=== PATIENT | male | born 1975 | race Caucasian/White ===

== ENCOUNTER 2019-07-14 14:44 | Emergency (ER) | payer MEDICAID, OTHER ==
[~2019-07-14] VITALS: Ht 177.8 cm; Wt 73.6 kg
[2019-07-14] MEDS ORDERED: LORazepam 2 mg/ml vial IM ONE (15:25)
[2019-07-14 15:42] LABS: BASOPHILS # (AUTO) 0.1 X10'3 (0-0.2); BASOPHILS % (AUTO) 0.7 % (0-1); EOSINOPHILS # (AUTO) 0.1 X10'3 (0-0.9); EOSINOPHILS % (AUTO) 1.1 % (0-6); HEMATOCRIT 40.5 % (42.0-52.0); HEMOGLOBIN 13.9 g/dl (14.0-17.9); LYMPHOCYTES # (AUTO) 2.5 X10'3 (1.1-4.8); LYMPHOCYTES % (AUTO) 25.9 % (21-51); MEAN CORPUSCULAR HEMOGLOBIN 31.5 PG (27.0-31.0); MEAN CORPUSCULAR HGB CONC 34.2 g/dL (33.0-36.5); MEAN CORPUSCULAR VOLUME 91.9 FL (78-98); MEAN PLATELET VOLUME 7.7 FL (7.4-10.4); MONOCYTES # (AUTO) 1.2 X10'3 (0-0.9); MONOCYTES % (AUTO) 12.4 % (2-12); NEUTROPHILS # (AUTO) 5.8 X10'3 (1.8-7.7); NEUTROPHILS % (AUTO) 59.9 % (42-75); PLATELET COUNT 189 X10'3 (140-440); RED BLOOD COUNT 4.41 X10'6 (4.70-6.10); RED CELL DISTRIBUTION WIDTH 13.9 % (11.5-14.5); WHITE BLOOD COUNT 9.6 X10'3 (4.5-11.0)
[2019-07-14 15:53] LABS: ALANINE AMINOTRANSFERASE 47 U/L (12-78); ALBUMIN 4.2 G/DL (3.4-5.0); ALBUMIN/GLOBULIN RATIO 1.1 (1.1-1.5); ALKALINE PHOSPHATASE 74 IU/L (46-116); ANION GAP 10 (8-16); ASPARTATE AMINO TRANSFERASE 52 U/L (10-37); BILIRUBIN,TOTAL 0.5 MG/DL (0.1-1.0); BLOOD UREA NITROGEN 10 MG/DL (7-18); BUN/CREATININE RATIO 11.5 (5.4-32.0); CALCIUM 9.4 MG/DL (8.5-10.1); CHLORIDE 104 MMOL/L (99-107); CREATININE 0.87 MG/DL (0.60-1.10); GLUCOSE 88 MG/DL (70-104); POTASSIUM 3.6 MMOL/L (3.5-5.1); SODIUM 141 MMOL/L (135-145); TOTAL CARBON DIOXIDE 27.4 MMOL/L (24-32); TOTAL PROTEIN 8.2 G/DL (6.4-8.2); eGFR > 90 ML/MIN
[2019-07-14 15:55] LABS: ETHANOL < 0.010 GM/DL (0.0-0.010)
[2019-07-14] MEDS ORDERED: ibuprofen tablet 400 MG TABLET PO ONE (17:00)
--- NOTE | 2019-07-14 17:00 | NUR ---
PT STANDING IN THE BAY REQUESTING PAIN MEDICATION
[2019-07-14] MEDS ORDERED: haloperidol lactate 5mg/ml inj IM ONE (17:05)
--- NOTE | 2019-07-14 18:01 | NUR ---
PT IS SNORING, NO AGITATION APPARENT
--- NOTE | 2019-07-14 19:02 | NUR ---
PT IS PRONE, SNORING, REGULAR BREATHING NO AGITATION APPARENT
--- NOTE | 2019-07-14 19:41 | NUR ---
PT WALKED WITH MELVIN PEREZ FROM BED 9 IN MAIN ER TO BED 24 IN OVERFLOW, CALM, NO ISSUES
--- NOTE | 2019-07-14 19:45 | NUR ---
Patient sleeping, low fowlers position in bed. In view from nursing station.
--- NOTE | 2019-07-14 21:00 | NUR ---
Patient still sleeping. On left side. Frequent rounding for patient and staff safety.
--- NOTE | 2019-07-14 21:50 | NUR ---
Patient sleeping on his right side. Patient talking in his sleep.
--- NOTE | 2019-07-14 22:30 | NUR ---
Patient in supine position, sleeping quietlly.
[2019-07-14 23:26] LABS: URINE AMPHETAMINE SCREEN POSITIVE (Neg); URINE BARBITUATE SCREEN NEGATIVE (Neg); URINE BENZODIAZEPINES SCREEN NEGATIVE (Neg); URINE CANNABINOID SCREEN POSITIVE (Neg); URINE COCAINE SCREEN NEGATIVE (Neg); URINE METHADONE SCREEN NEGATIVE (Neg); URINE OPIATE SCREEN NEGATIVE (Neg); URINE PHENCYCLIDINE SCREEN NEGATIVE (Neg)
--- NOTE | 2019-07-14 23:30 | NUR ---
Patient awoke, ambulated to bathroom without problem. Returned to bed to sleep.
--- NOTE | 2019-07-15 02:26 | NUR ---
Patient is sleeping on his right side, in view from nursing station.
--- NOTE | 2019-07-15 04:16 | NUR ---
Patient sleeping on his left side. In view from nursing station. Patient still talking in his sleep.
--- NOTE | 2019-07-15 06:55 | NUR ---
Pt is resting in bed peacefully at change of shift. No distress observed. Will continue to monitor.
--- NOTE | 2019-07-15 08:04 | NUR ---
Pt is resting in bed peacefully in the prone position, no distress observed.
--- NOTE | 2019-07-15 09:14 | NUR ---
Pt is sitting up at bedside eating breakfast. No distress observed.
--- NOTE | 2019-07-15 10:19 | NUR ---
Pt is resting in bed peacefully at this time. No distress observed.
--- NOTE | 2019-07-15 11:25 | NUR ---
Received phone call from Anival at [facility] office. Awaiting medical clearance still for this patient. Called ER physician to request evaluation to proceed with the clearance process.
--- NOTE | 2019-07-15 11:48 | NUR ---
Pt ambulated to the nurse's station. He is pleasant and cooperative with care. He requests a PRN medication for anxiety.
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
--- NOTE | 2019-07-15 12:18 | NUR ---
Pt is being evaluated at this time by Ellie from [facility].
[2019-07-15] MEDS ORDERED: QUET-1 PO ×2 (12:31→12:32)
--- NOTE | 2019-07-15 12:33 | NUR ---
Just spoke to Ellie from [facility]. Pt is not being held. Dr. Ang informed by [facility]. Waiting on discharge orders.
[2019-07-15] MEDS ORDERED: LORazepam 1 MG tablet PO ONE (12:40)
--- NOTE | 2019-07-15 12:57 | NUR ---
Pt was discharged ambulating self accompanied by Doreen, unit tech and security. No distress observed. All personal items and valuables inventoried and in Pt's possession at time of discharge. No prescriptions or medications sent with patient. Pat denies SI currently and states that he is ready to start the [facility] program at the [place]. Bus pass given to patient. Declined smoking cessation education and resources.
[2019-07-15 13:00] VITALS: BP 128/80
[2019-07-16] MEDS ORDERED: QUET400T PO (08:34)
[2019-07-16] MEDS ORDERED: OMEP20TA23 PO (08:34)
[2019-07-16] MEDS ORDERED: GABA-532 PO (08:34)
[2019-07-16] MEDS ORDERED: QUET-1 PO (08:34)
[2019-07-16] MEDS ORDERED: BENZ1TAB7 PO (08:34)
[2019-07-16] MEDS ORDERED: THO10T PO (08:34)
== END 2019-07-15 12:57 | disposition home or self-care (01) ==
LOC: ER 14:45
DX: R45.851 Suicidal ideations (principal); F15.90 Other stimulant use, unspecified, uncomplicated; F12.90 Cannabis use, unspecified, uncomplicated; F17.200 Nicotine dependence, unspecified, uncomplicated; Z59.0 Homelessness; Z79.899 Other long term (current) drug therapy
CPT/HCPCS: 36415; 80053; 80305; 80320; 85025; 96372; 99284; J1630; J2060

== ENCOUNTER 2019-07-15 15:50 | Emergency (ER) | payer MEDICAID, OTHER ==
[~2019-07-15] VITALS: Ht 177.8 cm; Wt 72.7 kg
[~2019-07-15 15:50] MED LIST: QUET-1 PO
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
--- NOTE | 2019-07-15 16:43 | NUR ---
PT IN BED ROOM WAS CLEARED HE IS LAYING DOWN RESTING LAB IN DRAWING BLOOD
[2019-07-15 17:04] LABS: BASOPHILS # (AUTO) 0.1 X10'3 (0-0.2); BASOPHILS % (AUTO) 0.7 % (0-1); EOSINOPHILS # (AUTO) 0.2 X10'3 (0-0.9); EOSINOPHILS % (AUTO) 2.3 % (0-6); HEMATOCRIT 39.3 % (42.0-52.0); HEMOGLOBIN 13.6 g/dl (14.0-17.9); LYMPHOCYTES # (AUTO) 1.6 X10'3 (1.1-4.8); LYMPHOCYTES % (AUTO) 16.9 % (21-51); MEAN CORPUSCULAR HEMOGLOBIN 31.8 PG (27.0-31.0); MEAN CORPUSCULAR HGB CONC 34.6 g/dL (33.0-36.5); MEAN CORPUSCULAR VOLUME 91.8 FL (78-98); MEAN PLATELET VOLUME 7.4 FL (7.4-10.4); MONOCYTES # (AUTO) 0.7 X10'3 (0-0.9); NEUTROPHILS # (AUTO) 6.6 X10'3 (1.8-7.7); NEUTROPHILS % (AUTO) 72.1 % (42-75); PLATELET COUNT 181 X10'3 (140-440); RED BLOOD COUNT 4.28 X10'6 (4.70-6.10); RED CELL DISTRIBUTION WIDTH 13.7 % (11.5-14.5); WHITE BLOOD COUNT 9.2 X10'3 (4.5-11.0)
[2019-07-15 17:17] LABS: ALANINE AMINOTRANSFERASE 53 U/L (12-78); ALBUMIN 3.6 G/DL (3.4-5.0); ALKALINE PHOSPHATASE 68 IU/L (46-116); ANION GAP 8 (8-16); ASPARTATE AMINO TRANSFERASE 77 U/L (10-37); BILIRUBIN,TOTAL 0.4 MG/DL (0.1-1.0); BLOOD UREA NITROGEN 15 MG/DL (7-18); BUN/CREATININE RATIO 17.4 (5.4-32.0); CALCIUM 8.6 MG/DL (8.5-10.1); CHLORIDE 104 MMOL/L (99-107); CREATININE 0.86 MG/DL (0.60-1.10); ETHANOL < 0.010 GM/DL (0.0-0.010); GLUCOSE 132 MG/DL (70-104); POTASSIUM 3.5 MMOL/L (3.5-5.1); SODIUM 138 MMOL/L (135-145); TOTAL CARBON DIOXIDE 25.9 MMOL/L (24-32); TOTAL PROTEIN 7.2 G/DL (6.4-8.2); eGFR > 90 ML/MIN
--- NOTE | 2019-07-15 17:41 | NUR ---
PT IN BED TRYING TO SLEEP LAYING UNDER BLANKET RISE AND FALL OF CHEST NOTED
[2019-07-15 19:07] LABS: URINE AMPHETAMINE SCREEN POSITIVE (Neg); URINE BARBITUATE SCREEN NEGATIVE (Neg); URINE BENZODIAZEPINES SCREEN NEGATIVE (Neg); URINE CANNABINOID SCREEN NEGATIVE (Neg); URINE COCAINE SCREEN NEGATIVE (Neg); URINE METHADONE SCREEN NEGATIVE (Neg); URINE OPIATE SCREEN NEGATIVE (Neg); URINE PHENCYCLIDINE SCREEN NEGATIVE (Neg)
[2019-07-16] MEDS ORDERED: quetiapine 100mg tablet PO ONE (00:05)
--- NOTE | 2019-07-16 00:07 | NUR ---
PATIENT STATES THAT HE TAKES 400MG SEROQUEL AND 50MG THORAZINE AT NIGHT, SPOKE WITH DR SON REGARDING MEDICATIONS. 100MG SEROQUEL ORDERED AT THIS TIME
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
[2019-07-16] MEDS ORDERED: BENZ1TAB7 PO (08:34)
[2019-07-16] MEDS ORDERED: GABA-532 PO (08:34)
[2019-07-16] MEDS ORDERED: QUET-1 PO (08:34)
[2019-07-16] MEDS ORDERED: OMEP20TA23 PO (08:34)
[2019-07-16] MEDS ORDERED: QUET400T PO (08:34)
[2019-07-16] MEDS ORDERED: THO10T PO (08:34)
--- NOTE | 2019-07-16 08:39 | NUR ---
Pt reporting he has meds in belongings. Belongings checked and empty bottle of seroquel and blister pack with prilosec found. Pt consented to pharmacy number on bottle being called and have meds reconciled. [facility]: ext 1000 Pharmacy provided meds pt was DC'd with 06/26/19 and medications were entered.
[2019-07-16] MEDS: quetiapine 100mg tablet PO SCH ×3 (10:58→19:59)
[2019-07-16] MEDS: gabapentin 300mg capsule PO SCH (10:59)
--- NOTE | 2019-07-16 12:00 | NUR ---
Pt was seen by [facility] worker and pt being placed on 5150.
[2019-07-16] MEDS: hydrOXYzine 25 MG tablet PO PRN ×2 (13:27→19:58)
[2019-07-16] MEDS: benztropine 1mg tablet PO SCH (19:57)
--- NOTE | 2019-07-16 20:00 | NUR ---
One to one with the patient to assess self harm risk and for the presence of psychotic symptoms. The patient was asked what brought him to the ER and he replied that he was having a hard time and that he did not have any money. He stated he did get his SSI check but has used all of those funds. When asked what his psychiatric diagnoisis was he stated "They say I'm bipolar but I think I'm pretty unigue" He denies voices but stated "they are thoughts in my head" He complains of having too much energy and not sleeping yet he abuse amphetamines. He reports his anxiety is high.
--- NOTE | 2019-07-16 22:10 | NUR ---
The patient appears to be sleeping.
--- NOTE | 2019-07-17 00:09 | NUR ---
The patient appears to be sleeping at this time but was up to use the bathroom once.
--- NOTE | 2019-07-17 02:57 | NUR ---
The patient appears to be sleeping
--- NOTE | 2019-07-17 05:03 | NUR ---
The patient appears to be sleeping
--- NOTE | 2019-07-17 07:09 | NUR ---
Patient appears to be sleeping comfortably at this time
[2019-07-17] MEDS: benztropine 1mg tablet PO SCH ×2 (08:17→20:11)
[2019-07-17] MEDS: gabapentin 300mg capsule PO SCH (08:17)
[2019-07-17] MEDS: quetiapine 100mg tablet PO SCH ×2 (08:17→20:11)
[2019-07-17] MEDS: hydrOXYzine 25 MG tablet PO PRN ×2 (08:21→16:56)
--- NOTE | 2019-07-17 09:00 | NUR ---
Patient is wanting to find transport back to [place] because he states that a facility that we was previously at is willing to take him back. It was explained that he is currently on a three day hold and will be reevaluated then. Patient wants to get a hold of the [facility] to see if they can help provide transport for him to be able to get back to the other facility.
--- NOTE | 2019-07-17 09:32 | NUR ---
breaking primary RN, pt was just up at nurses desk, then went to the bathroom, is calm, no s/s of distress
--- NOTE | 2019-07-17 11:00 | NUR ---
Patient laying in bed at this time. Patient in no apparent distress.
[2019-07-17] MEDS ORDERED: LORazepam 2 mg/ml vial IM ONE (12:05)
[2019-07-17] MEDS ORDERED: LORazepam 1 MG tablet PO ONE (12:30)
--- NOTE | 2019-07-17 12:32 | NUR ---
Patient anxious and asking for I.M. Ativan. Dr Brambila okayed for 1 mg Ativan P.O.
--- NOTE | 2019-07-17 13:43 | NUR ---
Patient is resting comfortably at this time in no apparent distress
--- NOTE | 2019-07-17 15:08 | NUR ---
Patient resting comfortably at this time and in no apparent distress
--- NOTE | 2019-07-17 16:05 | NUR ---
primary RN was sent on a break. techs at the bedside documenting vitals.
--- NOTE | 2019-07-17 17:01 | NUR ---
Patient asked for his PRN Atarax at this time. Patient was given Atarax and is now laying down comfortable.
--- NOTE | 2019-07-17 18:59 | NUR ---
Patient eyes closed, respirations even. Dinner untouched at bedside. Will continue to monitor.
[2019-07-17] MEDS ORDERED: quetiapine 100mg tablet PO SCH ×2 (19:31→19:32)
--- NOTE | 2019-07-17 21:37 | NUR ---
Patient laying in bed with eyes closed, respirations even. No signs of duress. Will continue to monitor.
--- NOTE | 2019-07-17 23:22 | NUR ---
Patient laying in bed with their eyes closed, respirations even. No signs of duress. Will continue to monitor.
--- NOTE | 2019-07-18 01:30 | NUR ---
Patient laying in bed with eyes closed, respirations even. No signs of duress. Will continue to monitor.
--- NOTE | 2019-07-18 03:29 | NUR ---
Patient laying in bed with eyes closed, respirations even. No signs of duress. Will continue to monitor.
--- NOTE | 2019-07-18 05:34 | NUR ---
Patient laying in bed with eyes closed, respirations even. No signs of duress. Will continue to monitor.
[2019-07-18 06:19] VITALS: BP 101/55
--- NOTE | 2019-07-18 07:30 | NUR ---
Pt is awake, anxious and asking for medications.
[2019-07-18] MEDS: quetiapine 100mg tablet PO SCH ×2 (07:56→12:35)
[2019-07-18] MEDS: gabapentin 300mg capsule PO SCH (07:56)
[2019-07-18] MEDS: benztropine 1mg tablet PO SCH (07:56)
--- NOTE | 2019-07-18 08:00 | NUR ---
Pt made a phone call to [facility].
[2019-07-18] MEDS: hydrOXYzine 25 MG tablet PO PRN (08:01)
--- NOTE | 2019-07-18 08:58 | NUR ---
Pt is on the phone with the treatment center in [facility]. Someone there is asking to speak with a case making machine operator. They are requesting that an H&P be faxed to them. Instructed pt to get name and fax number, explained that he would need to sign an WAYNE.
--- NOTE | 2019-07-18 10:24 | NUR ---
Pt constantly approaching the nurse's station with many requests and demands. Pt requesting a face sheet with a photo since he lost his ID. Pt requesting that this RN acquire him a bus ticket back to [place]. Pt requesting "a shot" for anxiety. Pt requesting to use the phone. Phone provided; pt accidently called the nurses' station twice. Pt requesting to speak with Sabiha from the [facility] as "she has some resources for me." Informed pt that Sabiha is not here today but will speak to staff from [facility] that is here today to see if they have time to come and speak with him.
--- NOTE | 2019-07-18 10:59 | NUR ---
Galen from the [facility] here, he will go and speak with the patient.
--- NOTE | 2019-07-18 11:12 | NUR ---
Pt is being re-evaluated by [facility].
--- NOTE | 2019-07-18 12:39 | NUR ---
Galen from [facility] reported that the facility in [place] is willing to take the patient back. Left message for SW to see if there is a possibility of getting the pt a bus ticket home.
--- NOTE | 2019-07-18 12:40 | NUR ---
Pt approached the nurse's station requesting his 1:00 meds, routine Seroquel 200 mg adminstered. Pt requesting Atarax again but order is for Q6H. Pt states he usually takes Thorazine. Pt also requesting that the doctor be asked for a note saying that he can stay inside all day at the [facility] as his back is messed up. Pt has been pacing around the unit, appeared to be moving without difficulty, has not asked for any pain medication.
--- NOTE | 2019-07-18 13:01 | NUR ---
Per Galen [facility] pt is being discharged to [facility] until Sunday[facility]. Dr Brambila agreed to write pt a note requesting he be allowed to remain inside at the [facility] during the day for medical issues.
--- NOTE | 2019-07-18 13:16 | NUR ---
Called [employer] [facility] 20 to 30 minutes.
== END 2019-07-18 13:56 | disposition home or self-care (01) ==
LOC: ER 15:50
DX: R45.851 Suicidal ideations (principal); F31.9 Bipolar disorder, unspecified; F10.99 Alcohol use, unspecified with unspecified alcohol-induced disorder; F15.90 Other stimulant use, unspecified, uncomplicated; Z59.0 Homelessness; Z56.0 Unemployment, unspecified; Z79.899 Other long term (current) drug therapy; Y90.9 Presence of alcohol in blood, level not specified
CPT/HCPCS: 36415; 80053; 80305; 80320; 85025; 99285; Z7610

== ENCOUNTER 2019-07-21 13:53 | Emergency (ER) | payer MEDICAID, OTHER ==
[~2019-07-21] VITALS: Ht 177.8 cm; Wt 73.6 kg
[~2019-07-21 13:53] MED LIST changes: +BENZ1TAB7 PO; +GABA-532 PO
[2019-07-21 14:07] VITALS: BP 122/75
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
[2019-07-21] MEDS ORDERED: QUET200T PO (15:28)
== END 2019-07-21 16:00 | disposition home or self-care (01) ==
LOC: ER 13:54
DX: F60.3 Borderline personality disorder (principal); F31.9 Bipolar disorder, unspecified; F15.90 Other stimulant use, unspecified, uncomplicated; Z59.0 Homelessness; Z56.0 Unemployment, unspecified; Z79.899 Other long term (current) drug therapy; Y04.2XXA Assault by strike against or bumped into by another person, initial encounter; Y93.89 Activity, other specified; Y92.89 Other specified places as the place of occurrence of the external cause; Y99.8 Other external cause status
CPT/HCPCS: 99284

== ENCOUNTER 2019-07-26 21:51 | Emergency (ER) | payer MEDICAID, OTHER ==
[~2019-07-26] VITALS: Ht 177.8 cm; Wt 75.0 kg
[~2019-07-26 21:51] MED LIST changes: +QUET200T PO
[2019-07-26 22:15] VITALS: BP 128/93
[2019-07-27] MEDS ORDERED: ziprasidone 20mg capsule PO STA (00:27)
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
--- NOTE | 2019-07-27 00:32 | NUR ---
PT LEFT T2 AFTER ASSESSMENT. UNCLEAR IF HE WILL RETURN.
== END 2019-07-27 02:25 | disposition home or self-care (01) ==
LOC: ER 21:52
DX: Z00.00 Encounter for general adult medical examination without abnormal findings (principal); F31.9 Bipolar disorder, unspecified; F15.90 Other stimulant use, unspecified, uncomplicated; F10.99 Alcohol use, unspecified with unspecified alcohol-induced disorder; Z59.0 Homelessness; Z56.0 Unemployment, unspecified; Z79.899 Other long term (current) drug therapy; Y90.9 Presence of alcohol in blood, level not specified
CPT/HCPCS: 99283